=== PATIENT | male | born 1945 | race Caucasian/White ===

== ENCOUNTER 2021-04-26 08:25 | Outpatient (CLI) | payer MEDICARE ==
[~2021-04-26 08:25] MED LIST: OMEP20TA62 PO
== END 2021-04-26 23:59 | disposition home or self-care (01) ==
LOC: CFH 08:25
PROVIDERS: ATTEND Internal Medicine Cardiovascular Disease
DX: I08.8 Other rheumatic multiple valve diseases (principal); I10 Essential (primary) hypertension
CPT/HCPCS: 93306